=== PATIENT | female | born 1975 | race African-American/Black ===

== ENCOUNTER → 2016-08-08 | Day surgery (SDC) | payer OTHER, MEDICARE ==
[~2016-08-08] VITALS: Ht 172.7 cm; Wt 72.6 kg
[~2016-08-08] MED LIST: ACEPHEN650 M1 PR; ACETAMINOPHEN325 M2 PO; ALENDRONATE SOD70 M2 PO; BACTRIM DS TAB1 EACH PO; BENGAY ULTRA S1 EACH TOP; BICARSIM80 M1 PO; COLACE100 M1 PO; DEPAKOTE500 M1 PO; DILANTIN100 M1 PO; DILANTIN50 MG PO; DIVALPROEX SOD500 M2 PO; DULCOLAX10 M1 RC; ESCITALOPRAM OX10 MG PO; FLEET ENEMA133 ML RC; FOLIC ACID1 M1 PO; GABAPENTIN300 M2 PO; KEPPRA500 M1 PO; MIDODRINE HCL2.5 M1 PO; MILK OF MA400 MG/52 PO; MULTI-DAY VITA1 EACH PO; OS-CAL 500+D31 EAC1 PO; PERCOCET 5-3251 EACH PO; SULFAMETHOXAZO1 EAC1 PO; TRAMADOL HCL50 M1 PO; TRAZODONE HCL50 M1 PO; TUMS FRESHERS200 MG PO; VITAMIN C500 M8 PO
--- NOTE | 2016-08-08 19:16 | Operative Report ---
See Addendum Operative/Inv Procedure Report Surgery Date: 08/08/16 Name of Procedure: Debridement surgical wound including ostectomy local rotation flap fasciocutaneous left buttock to sacral wound, Pre-Operative Diagnosis: sacral pressure was secondary to multiple sclerosis Post-Operative Diagnosis: Same Estimated Blood Loss: scant (200) Surgeon/Web Manager: NAYE MONTGOMERY MD Anesthesia: general endotracheal tube Operative/Procedure Note Note: The patient and her caregiver today and power of ip technology transactions attorney father was counseled in regards to the procedure the alternatives risks and expected outcomes as relates to her request for surgical intervention to treat a chronic pressure wound of the sacrum. We discussed the risk of partial complete failure of the flap loss of viable tissue chronic open wounds that remain. Once agreed to informed consent was signed and witnessed. Telephone. Taken to the operating room placed supine on the stretcher. General endotracheal anesthesia was established and she was put into the prone position appropriately padded. Drape in usual sterile fashion. Based into the wound with an inch undermining on either side of a 5 cm full-thickness loss centrally with exposed bone. The margin was excised completely back to bleeding tissue. The bone and a further portion was sent for micro-path analysis . No purulence was identified. The fasciocutaneous flap was then developed extending superiorly and left laterally. The superior portion of the gluteus ruben was elevated off its origin and advanced to cover sacral bone. That was fixed into position with absorbable suture. The fasciocutaneous flap was then elevated until perforating vessels were identified and that was rotated on top of the muscle and fixed with multiple layers of sutures over a drain.
== END ==
LOC: STS 07-24 03:12
DX: L89.159 Pressure ulcer of sacral region, unspecified stage (principal); G82.20 Paraplegia, unspecified; Z87.820 Personal history of traumatic brain injury; K21.9 Gastro-esophageal reflux disease without esophagitis; R56.9 Unspecified convulsions; Z93.3 Colostomy status; Z22.322 Carrier or suspected carrier of Methicillin resistant Staphylococcus aureus
CPT/HCPCS: 87070; 87075; 87071; 88307; J0131; J0690; J2250; J2405

== ENCOUNTER → 2016-10-10 | Day surgery (SDC) | payer OTHER, MEDICARE ==
[~2016-10-10] VITALS: Ht 172.7 cm; Wt 72.6 kg
--- NOTE | 2016-10-10 18:43 | Operative Report ---
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 We talked about definite risk of recurrence of the defect. We talked about infection bleeding cosmetic changes in the area and injury to surrounding structures. Once agreed informed consent was signed. She was taken to the operating room and central venous access placed by the anesthesia department. She was then put in the prone position and the buttock was prepped and draped in usual sterile fashion. Methylene blue was injected into the 5 cm defect. A rotation flap was then developed from the right superior gluteal region. Methylene blue stained tissue was excised in an ostectomy was performed and including a portion which was sent for micron path analysis. The flap was developed at the level of the gluteal fascia. Then rotated into position over a drain after advancement and multilayer closure.
== END ==
LOC: STS 01:41
DX: L89.159 Pressure ulcer of sacral region, unspecified stage (principal); G82.20 Paraplegia, unspecified; Z87.820 Personal history of traumatic brain injury; R56.9 Unspecified convulsions; K21.9 Gastro-esophageal reflux disease without esophagitis; Z22.322 Carrier or suspected carrier of Methicillin resistant Staphylococcus aureus
CPT/HCPCS: 87070; 87075; 87147; 88307; J0690; J2250; J3490

== ENCOUNTER → 2016-10-31 | Day surgery (SDC) | payer OTHER, MEDICARE ==
[~2016-10-31] VITALS: Ht 172.7 cm; Wt 72.6 kg
--- NOTE | 2016-10-31 16:39 | Operative Report ---
Operative/Inv Procedure Report Surgery Date: 10/31/16 Name of Procedure: Debridement sacral wound including ostectomy preparation for muscle flap closure Pre-Operative Diagnosis: Chronic sacral wound secondary to paraplegia and pressure closure with dehiscence Post-Operative Diagnosis: Same Estimated Blood Loss: 50ml to 100ml Surgeon/Test And Research Reactor Operator: NAYE MONTGOMERY MD Anesthesia: moderate sedation Operative/Procedure Note Note: Patient was counseled Whyte procedure the alternatives the risks and expected outcomes as relates to debridement of a necrotic wound following flap closure and ostectomy a few weeks ago. An obvious moderate amount of necrosis in the deeper layers. We discussed the risks including bleeding and infection. and Thursday with infectious disease and sensory is no cellulitis today will consist of a debridement and a repeat bone biopsy to rule out the presence of osteomyelitis in the accuracy of previous results. The patient signed informed consent. She was taken to the operative room turn the left side down on the stretcher. Intravenous sedation was given and the buttock was prepped and draped in usual sterile fashion. Full-thickness debridement of the dehisced area was carried out. The fascial layer was necrotic without crepitance or cellulitis nor foul order. Granulation tissue overlying the sacrum was debrided away and an ostectomy was done and a portion of which was sent for micro-and path analysis. The wound was pulse lavaged irrigated packed with Surgicel and saline moistened gauze.
== END ==
LOC: STS 03:18
DX: L89.159 Pressure ulcer of sacral region, unspecified stage (principal); G82.20 Paraplegia, unspecified; Z87.820 Personal history of traumatic brain injury; K21.9 Gastro-esophageal reflux disease without esophagitis; Z22.322 Carrier or suspected carrier of Methicillin resistant Staphylococcus aureus
CPT/HCPCS: 87070; 87075; 88307; J0690; J2250